=== PATIENT | female | born 1955 | race Caucasian/White ===

== ENCOUNTER 2016-11-16 14:10 | Emergency (ER) | payer BC ==
[2016-11-16 14:14] VITALS: BP 122/54; PULSE 65; TEMP 97.5; BMI 29.2
--- NOTE | 2016-11-16 15:47 | PDOC ---
History of Present Illness - General History Source: Patient Exam Limitations: No Limitations <Erika Mcdowell - Last Filed: 11/16/16 18:54> <Anne Mccauley - Last Filed: 11/16/16 20:36> - General History Source: Patient Exam Limitations: No Limitations - History of Present Illness Initial Comments: 11/16/16 18:55 The patient is a 60 year old female with a significant past medical history of vertigo and herniated discs, who presents to the ER with left leg burning and numbness for one week. Patient states she had onset of numbness in the bilateral lower extremities as she was walking down the stairs last friday (7 days go). She states the right leg numbness resolved but the left leg numbness persisted and is accompanied with leg tingling. Patient states she saw her orthopedic doctor in [facility] a few days ago and had a lumbar MRI done-- results not yet known. Patient reports the numbness and burning is going up the leg to the left abdomen and left chest/arm. She states she has intermittent sensations of itchiness in the hands and abdomen. pt dnies any focal weakness. Pt notes she has a history of radiculopathy before but these symptoms are new. Pt denies any headache, vision changes, neck pain, back pain, chest pain, palpitations, n/v. Denies nausea, vomiting, diarrhea Denies fever, chillsw, cough Denies back pain, dysuria, hematuria PCP: Dr. Perez Surgical Hx: Cholecystectomy, Surgery on Cervical Spine, Carpal Tunnel Surgery <Alfredo Ulrich - Last Filed: 11/20/16 09:18> - General Chief Complaint: Pain Stated Complaint: LFT LEG PAIN Time Seen by Provider: 11/16/16 15:00 Past History <Erika Mcdowell - Last Filed: 11/16/16 18:54> <Anne Mccauley - Last Filed: 11/16/16 20:36> - Past Medical History HTN: Yes Hypercholesterolemia: Yes Psychiatric Problems: Yes (depression) Other medical history: ARTHRITIS - Surgical History Cholecystectomy: Yes - Psycho/Social/Smoking Cessation Hx Anxiety: No Suicidal Ideation: No Smoking History: Never smoked Have you smoked in the past 12 months: No Hx Alcohol Use: No Drug/Substance Use Hx: No Substance Use Type: None <Alfredo Ulrich - Last Filed: 11/20/16 09:18> - Past Medical History Allergies/Adverse Reactions: Allergies Allergy/AdvReac Type Severity Reaction Status Date / Time No Known Allergies Allergy Verified 11/16/16 14:14 Home Medications: Ambulatory Orders Aspirin [ASA -] 81 mg PO DAILY 09/02/15 Atorvastatin Ca [Lipitor] 20 mg PO HS 09/02/15 Ibuprofen [Motrin -] 600 mg PO QID #20 tablet 09/02/15 Meclizine HCl [Antivert -] 12.5 mg PO TID PRN 09/02/15 Oxycodone HCl/Acetaminophen [Percocet 5-325 mg Tablet] 1 tab PO Q6H PRN #20 tablet MDD 4 09/02/15 Tamsulosin HCl [Flomax] 0.4 mg PO DAILY #7 capsule 09/02/15 Celecoxib [Celebrex -] 100 mg PO BID #30 capsule 11/16/16 Review of Systems - Review of Systems Able to Perform ROS?: Yes Comments:: 11/16/16 17:35 CONSTITUTIONAL: No reported: Fever, Chills, Diaphoresis, Generalized Weakness, Malaise, Loss of Appetite HEENT: No reported: Rhinorrhea, Nasal Congestion, Throat Pain, Throat Swelling, Difficulty Swallowing, Mouth Swelling, Ear Pain, Eye Pain, Visual Changes CARDIOVASCULAR: No reported: Chest Pain, Syncope, Palpitations, Irregular Heart Rate, Lightheadedness, Peripheral Edema RESPIRATORY: No reported: Cough, Shortness of Breath, SOB with Exertion, Orthopnea, Wheezing , Stridor, Hemoptysis GASTROINTESTINAL: No reported: Abdominal pain, Abdominal Distension, Nausea, Vomiting, Diarrhea, Constipation, Melena, Hematochezia GENITOURINARY: No reported: Dysuria, Frequency, Urgency, Hesitancy, Flank Pain, Genital Pain MUSCULOSKELETAL: Reported: (+) Left leg numbness, paresthesia, and burning No reported: Myalgia, Arthralgia, Joint Swelling, Back pain, Neck Pain SKIN: Reported: (+) Itchiness in the hands and abdomen No reported: Rash, Pallor HEMEATOLOGIC/IMMUNOLOGIC: No reported: Easy Bleeding, Easy Bruising, Lymphadenopathy, Frequent infections ENDOCRINE: No reported: Unexplained Weight Gain, Unexplained Weight Loss, Heat Intolerance , Cold Intolerance NEUROLOGIC: No reported: Headache, Focal Weakness, Paresthesias, Vertigo, Lightheadedness, Unsteady Gait, Seizure, Mental Status Changes, Incontinence PSYCHIATRIC: No reported: Anxiety, Depression <Alfredo Ulrich - Last Filed: 11/20/16 09:18> *Physical Exam - Vital Signs Last Vital Signs Temp Pulse Resp BP Pulse Ox 97.5 F L 65 20 122/54 98 11/16/16 14:11 11/16/16 14:11 11/16/16 14:11 11/16/16 14:11 11/16/16 14:11 <UtsErika - Last Filed: 11/16/16 18:54> - Vital Signs Last Vital Signs Temp Pulse Resp BP Pulse Ox 97.5 F L 65 20 122/54 98 11/16/16 14:11 11/16/16 14:11 11/16/16 14:11 11/16/16 14:11 11/16/16 14:11 <Anne Mccauley - Last Filed: 11/16/16 20:36> - Vital Signs Last Vital Signs Temp Pulse Resp BP Pulse Ox 97.5 F L 65 20 122/54 98 11/16/16 14:11 11/16/16 14:11 11/16/16 14:11 11/16/16 14:11 11/16/16 14:11 - Physical Exam Comments: 11/16/16 17:35 GENERAL: The patient is awake, alert, and fully oriented, Nontoxic - in no acute distress. HEAD: Normocephalic, atraumatic. EYES: extraocular movements intact, sclera anicteric, conjunctiva clear. ENT: Normal voice, Moist mucous membranes. NECK: Normal range of motion, supple LUNGS: Breath sounds equal, clear to auscultation bilaterally. No wheezes, no rhonchi, no rales. HEART: Regular rate and rhythm, normal S1 and S2 without murmur, rub or gallop. ABDOMEN: Soft, nontender, normoactive bowel sounds. No guarding, no rebound. . No CVA tenderness EXTREMITIES: Normal range of motion, no edema. No clubbing or cyanosis. No cords, erythema, or tenderness. NEUROLOGICAL: No facial assymetry, Normal speech, no drift in upper/lower extremities, mild weakness in LUE 5-/5, and LLE 5/5, normal otherwise, deminshed babinsky reflex in LLE. decreased sensation in the LLE, L body, LUE. normal sensation in face. PSYCH: Normal mood, normal affect. SKIN: Warm, Dry, normal turgor <MojganAlfredo - Last Filed: 11/20/16 09:18> Heart Score/ECG Review - ECG Impressions Comment:: 11/16/16 18:49 Twelve-lead EKG was performed and reviewed by me. There is normal sinus rhythm with a rate of 51 right bundle branch block twi in inferior leads and anterior leads <Mojgan,Alfredo - Last Filed: 11/20/16 09:18> ED Treatment Course - LABORATORY CBC & Chemistry Diagram: 11/16/16 16:10 11/16/16 16:10 - ADDITIONAL ORDERS Additional order review: Laboratory Results 11/16/16 11/16/16 11/16/16 16:10 16:10 16:07 INR 0.92 Sodium 142 Potassium 4.0 Chloride 105 Carbon Dioxide 29 D Anion Gap 8 BUN 23 H D Creatinine 0.6 Creat Clearance w eGFR > 60 Random Glucose 103 Calcium 9.1 Magnesium 2.2 Total Bilirubin 0.3 AST 15 D ALT 28 D Alkaline Phosphatase 68 Total Protein 6.7 Albumin 3.5 11/16/16 16:10 RBC 4.44 MCV 88.5 MCHC 32.7 RDW 14.0 MPV 10.2 Neutrophils % 75.7 Lymphocytes % 18.0 Monocytes % 5.8 Eosinophils % 0.2 Basophils % 0.3 <Uts,Erika - Last Filed: 11/16/16 18:54> - LABORATORY CBC & Chemistry Diagram: 11/16/16 16:10 11/16/16 16:10 - ADDITIONAL ORDERS Additional order review: Laboratory Results 11/16/16 11/16/16 11/16/16 18:15 16:10 16:10 INR 0.92 Sodium 142 Potassium 4.0 Chloride 105 Carbon Dioxide 29 D Anion Gap 8 BUN 23 H D Creatinine 0.6 Creat Clearance w eGFR > 60 Random Glucose 103 Calcium 9.1 Magnesium Total Bilirubin 0.3 AST 15 D ALT 28 D Alkaline Phosphatase 68 Total Protein 6.7 Albumin 3.5 Urine Color Colorless Urine Appearance Clear Urine pH 6.0 Urine Protein Negative Urine Glucose (UA) Negative Urine Ketones Negative Urine Blood 1+ H Urine Nitrite Negative Urine Bilirubin Negative Urine Urobilinogen Negative Ur Leukocyte Esterase Trace H Urine RBC 1 Urine WBC 2 Ur Epithelial Cells Rare 11/16/16 16:07 INR Sodium Potassium Chloride Carbon Dioxide Anion Gap BUN Creatinine Creat Clearance w eGFR Random Glucose Calcium Magnesium 2.2 Total Bilirubin AST ALT Alkaline Phosphatase Total Protein Albumin Urine Color Urine Appearance Urine pH Urine Protein Urine Glucose (UA) Urine Ketones Urine Blood Urine Nitrite Urine Bilirubin Urine Urobilinogen Ur Leukocyte Esterase Urine RBC Urine WBC Ur Epithelial Cells 11/16/16 16:10 RBC 4.44 MCV 88.5 MCHC 32.7 RDW 14.0 MPV 10.2 Neutrophils % 75.7 Lymphocytes % 18.0 Monocytes % 5.8 Eosinophils % 0.2 Basophils % 0.3 <Anne Mccauley - Last Filed: 11/16/16 20:36> - LABORATORY CBC & Chemistry Diagram: 11/16/16 16:10 11/16/16 16:10 - RADIOLOGY Radiology Studies Ordered: Category Date Time Status CERVICAL SPINE CT W/O CONTR [CT] Stat CT Scan 11/16/16 15:[address] WITHOUT CONTRAST [CT] Stat CT Scan 11/16/16 15:[address] W/O CONTRAST [CT] Stat CT Scan 11/16/16 15:30 Ordered <Alfredo Ulrich - Last Filed: 11/20/16 09:18> Medical Decision Making - Medical Decision Making 11/16/16 19:41 I received pt on signout; CT scans pending: Head CT: Patient Name: Nguyen Pate THIS IS A PRELIMINARY REPORT FROM [facility] CARE MANAGER EXAM: CT head without contrast IMAGES: [id number] DATE OF SERVICE: 16:15:36.0 HISTORY:Left arm and leg tingling. COMPARISON: None. FINDINGS: 1. There is no evidence of an acute intracranial process, intracranial hemorrhage or mass effect. 2. The ventricles are normal size. 3. The visualized portions of the orbits, paranasal and mastoid sinuses are unremarkable. THIS DOCUMENT HAS BEEN ELECTRONICALLY SIGNED 11/16/16 19:[address]:Patient Name: Nguyen Pate THIS IS A PRELIMINARY REPORT FROM [facility]AGING [facility]ICAL CARE MANAGER EXAM: CT cervical spine without contrast IMAGES: [id number] DATE OF SERVICE: 2016-11-16 16:15:36.0 HISTORY:Left arm and leg tingling. COMPARISON: None. FINDINGS: 1. There is straightening of the normal lordotic curve of the cervical spine. There is previous anterior discectomy and fusion from C4-C6. The vertebral heights are maintained. There is loss of height of the C6-C7 disc. 2. There appears to be canal stenosis at the C6-C7 level with a right paracentral disc protrusion/herniation. Visualization of detail of the contents of the cervical canal is significantly limited by artifact. MRI of the cervical spine may be helpful for further evaluation. 3. There is no evidence of fracture, subluxation or hardware failure of the cervical spine. 4. The paraspinous soft tissues are unremarkable. THIS DOCUMENT HAS BEEN ELECTRONICALLY SIGNED 11/16/16 19:[address]: Patient Name: Nguyen Pate THIS IS A PRELIMINARY REPORT FROM [facility]AGING MEDICAL CARE MANAGER EXAM: CT lumbar spine without contrast IMAGES: [id number] DATE OF SERVICE: 2016-11-16 16:15:36.0 HISTORY:Left arm and leg tingling. COMPARISON: None. FINDINGS: 1. There is mild grade 1 anterolisthesis of L2 on L3. The vertebral heights are maintained. There is loss of height of the disc spaces in the lumbar spine from L2-L3 through L5-S1. There is multiple level degenerative facet change. There appears to be multiple level canal stenosis secondary to spondylotic change. MRI lumbar spine may be helpful for further evaluation. 2. Left renal cyst that is incompletely imaged. There appear to be small stones in the right renal pelvis. 3. Evidence of previous cholecystectomy. THIS DOCUMENT HAS BEEN ELECTRONICALLY SIGNED 11/16/16 20:[address] Perez who agrees that pt can follow with him on an outpatient basis. I will provide her with copies of her CT scan results. <Anne Mccauley - Last Filed: 11/16/16 20:36> - Medical Decision Making 11/16/16 15:33 60y F hx of vertigo, herniated discs, presnts to the ED for eavluation of L sided tingling. Pt states that she had L sided leg burning/tingling for 1 week, went to her ortho who ordered an MRI, but she doesnt know the results. She came today due to worsening symptoms and in the ED noticed some numbness to her LUE/ body as well. exam noted for mild weakness and sensory deficits of LE and LUE unclear what level pts herniated discs are, pt with no cts present here but differential includes cervical + lumbar radiculopathy (although pt has no back/neck pain) vs cva will ck ct neck/lumbar, ct head will reassess A portion of this note was documented by scribe services under my direction. I have reviewed the details of the note, within reason, and agree with the documentation with the following case summary and management plan written by me 11/16/16 19:00 pt signed out to dr. bridgette de paz with results and disposition the pt <Alfredo Ulrich - Last Filed: 11/20/16 09:18> *DC/Admit/Observation/Transfer - Attestations Scribe Attestion: 11/16/16 17:36 Documentation prepared by Erika Mcdowell, acting as medical laboratory technicians for Alfredo Ulrich MD. <Erika Mcdowell - Last Filed: 11/16/16 18:54> <Anne Mccauley - Last Filed: 11/16/16 20:36> <Alfredo Ulrich - Last Filed: 11/20/16 09:18> Diagnosis at time of Disposition: Paresthesia and pain of left extremity, Paresthesia of left leg, Spinal stenosis of lumbar region, Spinal stenosis in cervical region - Discharge Dispostion Disposition: HOME Condition at time of disposition: Stable - Prescriptions Prescriptions: Celecoxib [Celebrex -] 100 mg PO BID #30 capsule - Referrals Referrals: STAFF,NOT ON [Primary Care Provider] - NIH Stroke Scale - Last Known Well Date/Time & Onset Date Last Known Well: 11/10/16 Time Last Known Well: 16:00 - Initial Evaluation Level of consciousness: Alert Ask patient the month and their age: Answers both correctly Ask patient to open & close eyes; make fist and let go: Obeys both correctly Best gaze (horizontal eye movement): Normal Visual field testing: No visual field loss Facial paresis (Show teeth/raise eyebrows/close eyes tight): Normal symmetrical movement Motor Function: Left Arm: Normal Motor Function: Right Arm: Normal (extends arm 90 (or 45) degrees for 10 seconds without drift Motor Function: Left Leg: Normal (extends leg 30 degrees for 5 seconds without drift) Motor Function: Right Leg: Normal (extends leg 30 degrees for 5 seconds without drift) Limb Ataxia: No ataxia Sensory(Use pinprick test arms,legs,trunk,face/side to side): Mild to moderate decrease in sensation Best language (Describe picture, name items, read sentences): No Aphasia Dysarthria (read several words): Normal articulation Extinction and Inattention: No abnormality - Total Score NIH Stroke Scale Score: 1 <Alfredo Ulrich - Last Filed: 11/20/16 09:18> tPA Exclusion Checklist 0-3hr - Time Elapsed Date last known well: 11/09/16 Time last known well: 17:00 Elaspsed time: 10 Day(s) and 16 Hour(s) and 18 Minutes - Thrombolytic Therapy Candidate Is the patient eligible for Thrombolytic Therapy?: No - Ineligibility reason(s) Reasons No tPA given: Outside of window - delayed arrival <Alfredo Ulrich - Last Filed: 11/20/16 09:18>
[2016-11-16 16:14] LABS: BASOPHIL 0.3 % (0-2.0); EOSINOPHIL 0.2 % (0-4.5); MCHC 32.7 g/dl (32.0-36.0); MEAN CELL VOLUME 88.5 fl (80-96); MEAN PLT VOLUME 10.2 fl (7.5-11.1); NEUTROPHILS 75.7 % (42.8-82.8); PLATELET COUNT 191 K/MM3 (134-434)
[2016-11-16 16:34] LABS: INR 0.92 (0.82-1.09); PROTHROMBIN TIME (PATIENT) 10.1 SEC (9.98-11.88)
[2016-11-16 16:48] LABS: ALBUMIN 3.5 g/dl (3.4-5.0); ALK PHOS 68 U/L (45-117); ANION GAP 8 (8-16); BILIRUBIN,TOTAL 0.3 mg/dL (0.2-1.0); CALCIUM 9.1 mg/dL (8.5-10.1); CO2 29 mmol/L (21-32); CREATININE 0.6 mg/dL (0.55-1.02); GLUCOSE,RANDOM 103 mg/dL (74-106); SGOT/AST 15 U/L (15-37); SGPT/ALT 28 U/L (12-78); TOT PROT 6.7 g/dl (6.4-8.2)
[2016-11-16 18:55] LABS: URINE APPEARANCE CLEAR; URINE BILIRUBIN NEGATIVE (NEGATIVE); URINE COLOR COLORLESS; URINE GLUCOSE (UA) NEGATIVE (NEGATIVE); URINE KETONE NEGATIVE (NEGATIVE); URINE NITRITE NEGATIVE (NEGATIVE); URINE PROTEIN NEGATIVE (NEGATIVE); URINE UROBILINOGEN NEGATIVE E.U./dl (0.2-1.0)
[2016-11-16 19:01] LABS: URINE BLOOD 1+ (NEGATIVE); URINE LEUK ESTERASE TRACE (NEGATIVE)
[2016-11-16 19:02] LABS: URINE RBC 1 /hpf (0-3); URINE WBC 2 /hpf (3-5)
--- NOTE | 2016-11-17 10:15 | EKG ---
Test Reason : Blood Pressure : / mmHG Vent. Rate : 051 BPM Atrial Rate : 051 BPM P-R Int : 136 ms QRS Dur : 128 ms QT Int : 472 ms P-R-T Axes : -04 000 -12 degrees QTc Int : 435 ms SINUS BRADYCARDIA RIGHT BUNDLE BRANCH BLOCK NONSPECIFIC ST ABNORMALITY ABNORMAL ECG Confirmed by MALINA VU MD ([id number]) on 11/17/2016 10:15:19 AM Referred By: Confirmed By:MALINA VU MD
== END 2016-11-16 20:16 | disposition home or self-care (01) ==
LOC: JER 14:10
DX: R20.2 Paresthesia of skin (principal); M48.02 Spinal stenosis, cervical region; M48.06 Spinal stenosis, lumbar region; I10 Essential (primary) hypertension; E78.00 Pure hypercholesterolemia, unspecified; F32.9 Major depressive disorder, single episode, unspecified; M12.9 Arthropathy, unspecified
CPT/HCPCS: 36415; 70450-TC; 72125-TC; 72131-TC; 80053; 81003; 81015; 83735; 85025; 85610; 93005; 93010; 99282-25

== ENCOUNTER 2017-01-01 05:14 | Day surgery (SDC) | payer BC ==
[2016-12-31 15:03] VITALS: BMI 29.2
[2017-01-01 07:32] VITALS: TEMP 97.2
[2017-01-01] MEDS ORDERED: PROPOFOL 20 ML ONE (09:05)
[2017-01-01] MEDS ORDERED: BUPIVACAINE HCL/PF 0.25% (2.5MG/ML) 10 ML VIAL IJ ONE (09:10)
[2017-01-01] MEDS ORDERED: methylPREDNISolone ACET (DEPO) 80 MG/1 ML VIAL IJ ONE (09:11)
[2017-01-01] MEDS ORDERED: LIDOCAINE HCL 1% PRESERVATIVE FREE - 30ML VIAL IJ ONE (09:11)
--- NOTE | 2017-01-01 11:04 | OP ---
DATE OF OPERATION: 01/01/2017 PREOPERATIVE DIAGNOSIS: Lumbar spinal stenosis L3-L4 with lower back pain and lumbar radiculopathy. POSTOPERATIVE DIAGNOSIS: Lumbar spinal stenosis L3-L4 with lower back pain and lumbar radiculopathy. ATTENDING SURGEON: Abbe Carpio MD PROCEDURES: 1. Left L3-L4 epidural injection. 2. Trial operative fluoroscopy. ANESTHESIA: Local with IV sedation. ANESTHESIOLOGIST: Lily Alcantara MD INDICATIONS: The patient is a 61-year-old female with back pain and lumbar radiculopathy. Because of intractable symptoms and failure with conservative treatment, she is here for the first epidural steroid injection. The risks of procedure include, but are not limited to, bleeding, infection, spinal headache, and neurological injury. The patient understands the indication for the procedure. Risks, benefits, and alternatives for treatment of her lumbar condition and wished to proceed. No guaranteed is given for favorable outcome. DESCRIPTION OF PROCEDURE: After the patient was taken to the operating room, she was placed in prone position with a pillow under her hips. Lumbar area was cleaned with alcohol and prepped with Betadine. A skin wheal was raised using 5 mL of 1% Xylocaine. A 22-gauge spinal needle was inserted under AP fluoroscopic guidance from a left-sided approach to L3-L4. Loss of resistance technique was utilized, and there was no CSF or blood backflow. The needle bed was turned cephalad and laterally. Then 80 mg Depo-Medrol with 1 mL of 0.25% Marcaine was injected. The needle was withdrawn. Sterile bandage was applied. The patient tolerated the procedure well and was turned to supine position. Moving bilateral lower extremities well. She did not complain of headache. ABBE CARPIO M.D. [id number]
[2017-01-01 11:39] VITALS: BP 122/70; PULSE 68
== END 2017-01-01 10:35 | disposition home or self-care (01) ==
LOC: JASU-SURG 05:14
PROVIDERS: ATTEND Neurological Surgery
PROC: 3E0S33Z Introduction of Anti-inflammatory into Epidural Space, Percutaneous Approach (ICD-10-PCS; 2017-01-01)
PROC: B01BYZZ Fluoroscopy of Spinal Cord using Other Contrast (ICD-10-PCS; 2017-01-01)
PROC: 3E0S3BZ Introduction of Anesthetic Agent into Epidural Space, Percutaneous Approach (ICD-10-PCS; principal; 2017-01-01 08:30)
DX: M48.06 Spinal stenosis, lumbar region (principal); M54.16 Radiculopathy, lumbar region
CPT/HCPCS: 76000-TC

== ENCOUNTER 2017-04-21 17:29 | Emergency (ER) | payer BC ==
[2017-04-21 17:40] VITALS: BP 121/76; PULSE 75; TEMP 97.9; BMI 29.2
[2017-04-21] MEDS ORDERED: diazePAM 5 MG TABLET PO ONE (18:10)
[2017-04-21] MEDS ORDERED: diazePAM 5 MG TABLET ONE (18:23)
[2017-04-21 18:30] LABS: URINE APPEARANCE Clear; URINE BILIRUBIN Negative (NEGATIVE); URINE BLOOD Negative (NEGATIVE); URINE GLUCOSE (UA) Negative (NEGATIVE); URINE KETONE Negative (NEGATIVE); URINE NITRITE Negative (NEGATIVE); URINE PROTEIN Negative (NEGATIVE); URINE UROBILINOGEN 0.2 (0.2-1.0)
--- NOTE | 2017-04-21 18:32 | PDOC ---
History of Present Illness - General History Source: Patient, Family, Old Records Exam Limitations: No Limitations <Eduardo Velasco - Last Filed: 04/21/17 18:53> - General History Source: Patient, Family, Old Records Exam Limitations: No Limitations - History of Present Illness Initial Comments: 04/21/17 18:57 The patient is a 61 year old female, with a significant past medical history of ridiculopathy and cervical/lumbar disk herniation who presents to the emergency department with neuropathic pain for several months. The patient reports bilateral lower extremity numbness, burning, and tingling that is chronic in nature, but has worsened at the left lower extremity. Patient reports numbness and tingling in bilateral upper extremities with her right side worse than left. Patient reports recent lumbar surgery and multiple jose placements in December 2016 with mild improvement of symptoms. Patient reports her symptoms have worsened since her surgery. She states her symptoms are worsened when lying flat and alleviated when walking. Patient reports discussing her symptoms with her surgeon 2 days ago, who increased her dose of Gabapentin from 300 to 600 mg BID with minimal relief of symptoms. Patient reports her neuropathic symptoms have affected her ability to sleep. She reports new onset of dysuria and left lower quadrant pain for 2 days. She denies any associated hematuria, frequency, or urgency. She denies any nausea, vomiting, diarrhea, or constipation. She denies any fever or chills. She denies any recent travel or sick contacts. Allergies: NKDA Past Surgical History: Cholecystectomy, Surgery on Cervical Spine, Right carpal tunnel Social History: Non smoker. No ETOH or recreational drug use. PCP: Dr. Fairchild <Nanci Macias - Last Filed: 04/21/17 20:57> - General Chief Complaint: Pain, Acute Stated Complaint: LEFT SIDE BURNING/PAIN Time Seen by Provider: 04/21/17 17:36 Past History - Past Medical History COPD: No HTN: Yes Hypercholesterolemia: Yes Liver Disease: No Psychiatric Problems: Yes (depression) - Surgical History Cholecystectomy: Yes Neurologic Surgery: (NECK) Orthopedic Surgery: (LEFT SHOULDER ,CTR STACY) - Suicide/Smoking/Psychosocial Hx Smoking History: Never smoked Have you smoked in the past 12 months: No Information on smoking cessation initiated: No Hx Alcohol Use: No Drug/Substance Use Hx: No Substance Use Type: None <Eduardo Velasco - Last Filed: 04/21/17 18:53> <Nanci Macias - Last Filed: 04/21/17 20:57> - Past Medical History Allergies/Adverse Reactions: Allergies Allergy/AdvReac Type Severity Reaction Status Date / Time No Known Allergies Allergy Verified 04/21/17 17:31 Home Medications: Ambulatory Orders Atorvastatin Ca [Lipitor] 10 mg PO HS 09/02/15 Fluoxetine HCl [Prozac] 20 mg PO DAILY 04/21/17 Gabapentin [Neurontin] 600 mg PO BID 04/21/17 Review of Systems - Review of Systems Able to Perform ROS?: Yes Comments:: 04/21/17 18:57 GENERAL/CONSTITUTIONAL: No fever or chills. No weakness. HEAD, EYES, EARS, NOSE AND THROAT: No change in vision. No ear pain or discharge. No sore throat. CARDIOVASCULAR: No chest pain or shortness of breath. RESPIRATORY: No cough, wheezing, or hemoptysis. GASTROINTESTINAL: Yes abdominal pain. No nausea, vomiting, diarrhea or constipation. GENITOURINARY: Yes dysuria. No frequency, or change in urination. MUSCULOSKELETAL: No joint or muscle swelling or pain. No neck pain. SKIN: No rash NEUROLOGIC: Yes bilateral lower extremity numbness, tingling, and burning, with left worse than right. Yes bilateral upper extremity numbness and tingling, right worse than left. Yes neuropathic pain. No headache, vertigo, loss of consciousness, or change in strength. ENDOCRINE: No increased thirst. No abnormal weight change. HEMATOLOGIC/LYMPHATIC: No anemia, easy bleeding, or history of blood clots. ALLERGIC/IMMUNOLOGIC: No hives or skin allergy. <Nanci Macias - Last Filed: 04/21/17 20:57> *Physical Exam - Vital Signs Last Vital Signs Temp Pulse Resp BP Pulse Ox 97.9 F 75 16 121/76 100 04/21/17 17:30 04/21/17 17:30 04/21/17 17:30 04/21/17 17:30 04/21/17 17:30 <Eduardo Velasco - Last Filed: 04/21/17 18:53> - Vital Signs Last Vital Signs Temp Pulse Resp BP Pulse Ox 97.9 F 75 16 121/76 100 04/21/17 17:30 04/21/17 17:30 04/21/17 17:30 04/21/17 17:30 04/21/17 17:30 - Physical Exam Comments: 04/21/17 18:58 GENERAL: Awake, alert, and fully oriented, in no acute distress HEAD: No signs of trauma EYES: PERRLA, EOMI, sclera anicteric, conjunctiva clear ENT: Auricles normal inspection, hearing grossly normal, nares patent, oropharynx clear without exudates. Moist mucosa NECK: Normal ROM, supple, no lymphadenopathy, JVD, or masses LUNGS: Breath sounds equal, clear to auscultation bilaterally. No wheezes, and no crackles HEART: Regular rate and rhythm, normal S1 and S2, no murmurs, rubs or gallops ABDOMEN: Tenderness to palpation to the left lower quadrant. Soft, normoactive bowel sounds. No guarding, no rebound. No masses EXTREMITIES: Normal range of motion to the upper and lower extremities, but no edema. No clubbing or cyanosis. No cords, erythema, or tenderness. VASCULAR: DP/PT pulses 2+ and symmetric NEUROLOGICAL: Decreased sensation to the right upper quadrant compared to left. Paresthesias appreciated in the bilateral lower extremities, left worse than right. Cranial nerves II through XII grossly intact. Normal speech. SKIN: Warm, Dry, normal turgor, no rashes or lesions noted. <Nanci Macias - Last Filed: 04/21/17 20:57> ED Treatment Course - LABORATORY CBC & Chemistry Diagram: 04/21/17 18:22 04/21/17 18:22 <Eduardo Velasco - Last Filed: 04/21/17 18:53> - LABORATORY CBC & Chemistry Diagram: 04/21/17 18:22 04/21/17 18:22 - ADDITIONAL ORDERS Additional order review: Laboratory Results 04/21/17 18:22 Urine Color Yellow Urine Appearance Clear Urine pH 7.0 Ur Specific [place] 1.020 Urine Protein Negative Urine Glucose (UA) Negative Urine Ketones Negative Urine Blood Negative Urine Nitrite Negative Urine Bilirubin Negative Urine Urobilinogen 0.2 Ur Leukocyte Esterase Trace H 04/21/17 18:22 RBC 3.90 MCV 86.9 MCHC 32.2 RDW 13.0 MPV 11.5 H Neutrophils % 59.6 Lymphocytes % 29.8 Monocytes % 7.6 Eosinophils % 2.4 Basophils % 0.6 - RADIOLOGY Radiograph Interpretation: 04/21/17 20:56 EXAM: CT Abdomen and Pelvis INTERPRETED BY: Dr. Martinez REVIEWED BY: Dr. Perez IMPRESSION: No evidence of pneumoperitoneum, abscess, free intraperitoneal fluid or bowel obstruction. Mild left-sided colonic diverticulosis is noted without evidence of acute diverticulitis. In comparison to a prior CT study of there has been interval passage/removal of a small proximal left ureteral calculus with associated resolution of mild hydronephrosis. Note is made also made of interval multilevel bilateral lower lumbar interpedicular screw fixation. The remainder of the study demonstrates no definite interval change. No definite evidence of current urolithiasis. Small urinary tract calculi may not be demonstrable on contrast-enhanced CT. Status post cholecystectomy. Mild intrahepatic and extrahepatic biliary tract dilatation. Common bile duct diameter 1 cm. No gross intraductal calculus is seen. Clinical/ laboratory correlation is suggested. Hepatic cysts. 5.7 cm left renal cortical cyst. The spleen, pancreas, and adrenal glands demonstrate no discrete abnormality. There is no aortic aneurysm. No definite lymphadenopathy is noted. There is no discrete pelvic pathology. No definite CT signs of acute pathology are identified. Mild sigmoid diverticulosis without evidence of acute diverticulitis. In comparison to a prior CT study of 09/02/2015 there has been interval passage/removal of a small proximal left ureteral calculus with resolution of mild hydronephrosis. No obvious current urolithiasis is seen. Status post cholecystectomy as the prior study. Mild stable biliary tract dilatation. - Medications Given in the ED: ED Medications Discontinued Medications Generic Name Dose Route Start Last Admin Trade Name Freq PRN Reason Stop Dose Admin Diazepam 5 mg 04/21/17 18:10 04/21/17 18:24 Valium - PO 04/21/17 18:11 5 mg ONCE ONE Administration <Macias,Giomilsy - Last Filed: 04/21/17 20:57> Medical Decision Making - Medical Decision Making 04/21/17 18:21 A portion of this note was documented by scribe services under my direction. I have reviewed the details of the note, within reason, and agree with the documentation with the following case summary and management plan written by me. Patient treated in the ED. Nursing notes are reviewed and incorporated into the medical decision-making. Vital signs reviewed. Peripheral IV access obtained by the nurse, laboratory studies are drawn and sent, reviewed and interpreted by myself. Vital Signs Temp Pulse Resp BP Pulse Ox 97.9 F 75 16 121/76 100 04/21/17 17:30 04/21/17 17:30 04/21/17 17:30 04/21/17 17:30 04/21/17 17:30 61-year-old female with past medical history of radiculopathy and cervical and lumbar disc herniations presents to the emergency department for neuropathic pain. The patient reports for chronic time of having bilateral numbness and burning and tingling sensation that has particular worsened in the left lower extremity. She has known numbness and tingling in her upper extremities worse on the right. She has undergone lumbar surgery and jose placement in December 2017 with some improvement in symptoms. However, patient is noted that these neuropathic symptoms have been progressively worsened. 2 days ago, she had discussed this with her doctor who had increased her gabapentin to 600 mg twice a day. Unsure if she noticed and affect. However it is now affecting her ability to sleep so the patient came into the ED. Recently, patient has been endorsing dysuria but denies fevers or chills. Patient has been complaining of left lower quadrant Pain for 2 days, which is new for her. This may potentially be neuropathic pain exacerbation. However, she may be having an exacerbation the setting of urinary tract infection versus diverticulitis versus colitis. We'll attempt to control her symptoms and draw blood work and urinalysis. We'll also obtain a CAT scan the abdomen pelvis and reassess. 04/21/17 18:53 Case signed out to Dr. Perez for further management and disposition. <Eduardo Velasco - Last Filed: 04/21/17 18:53> *DC/Admit/Observation/Transfer <Eduardo Velasco - Last Filed: 04/21/17 18:53> - Attestations Scribe Attestion: 04/21/17 18:58 Documentation prepared by Nanci Macias, acting as medical case manager for Eduardo Velasco MD. <Nanci Macias - Last Filed: 04/21/17 20:57> - Discharge Dispostion Condition at time of disposition: Stable
[2017-04-21 18:36] LABS: URINE COLOR YELLOW; URINE LEUK ESTERASE TRACE (NEGATIVE)
[2017-04-21 18:38] LABS: BASOPHIL 0.6 % (0-2.0); EOSINOPHIL 2.4 % (0-4.5); MCHC 32.2 g/dl (32.0-36.0); MEAN CELL VOLUME 86.9 fl (80-96); MEAN PLT VOLUME 11.5 fl (7.5-11.1); NEUTROPHILS 59.6 % (42.8-82.8); PLATELET COUNT 250 K/MM3 (134-434); WHITE BLOOD COUNT 5.9 K/mm3 (4.0-10.8)
[2017-04-21 19:09] LABS: ALBUMIN 3.7 g/dl (3.5-5.0); ALK PHOS 56 U/L (32-92); ANION GAP 6 (8-16); BILIRUBIN,TOTAL 0.7 mg/dl (0.2-1.0); CO2 25 mmol/L (22-28); CREATININE 0.7 mg/dl (0.6-1.3); GLUCOSE,RANDOM 97 mg/dl (74-106); MAGNESIUM 2.1 mg/dL (1.8-2.4); PHOSPHOROUS 4.1 mg/dl (2.5-4.6); SGOT/AST 25 U/L (10-42); SGPT/ALT 30 U/L (10-40); TOT PROT 6.2 g/dl (6.4-8.3)
[2017-04-21 20:37] LABS: URINE RBC 0-3 /hpf (0-3)
[2017-04-21 20:39] LABS: URINE BACTERIA FEW /hpf (NEGATIVE)
--- NOTE | 2017-04-21 20:39 | PDOC ---
*Physical Exam - Vital Signs Last Vital Signs Temp Pulse Resp BP Pulse Ox 97.9 F 75 16 121/76 100 04/21/17 17:30 04/21/17 17:30 04/21/17 17:30 04/21/17 17:30 04/21/17 17:30 ED Treatment Course - LABORATORY CBC & Chemistry Diagram: 04/21/17 18:22 04/21/17 18:22 - ADDITIONAL ORDERS Additional order review: Laboratory Results 04/21/17 04/21/17 18:22 18:22 Sodium 136 Potassium 4.4 Chloride 105 Carbon Dioxide 25 Anion Gap 6 L BUN 22 H Creatinine 0.7 Creat Clearance w eGFR > 60 Random Glucose 97 Calcium 9.0 Phosphorus 4.1 Magnesium 2.1 Total Bilirubin 0.7 AST 25 ALT 30 Alkaline Phosphatase 56 Total Protein 6.2 L Albumin 3.7 Urine Color Yellow Urine Appearance Clear Urine pH 7.0 Ur Specific [place] 1.020 Urine Protein Negative Urine Glucose (UA) Negative Urine Ketones Negative Urine Blood Negative Urine Nitrite Negative Urine Bilirubin Negative Urine Urobilinogen 0.2 Ur Leukocyte Esterase Trace H 04/21/17 18:22 RBC 3.90 MCV 86.9 MCHC 32.2 RDW 13.0 MPV 11.5 H Neutrophils % 59.6 Lymphocytes % 29.8 Monocytes % 7.6 Eosinophils % 2.4 Basophils % 0.6 - Medications Given in the ED: ED Medications Discontinued Medications Generic Name Dose Route Start Last Admin Trade Name Freq PRN Reason Stop Dose Admin Diazepam 5 mg 04/21/17 18:10 04/21/17 18:24 Valium - PO 04/21/17 18:11 5 mg ONCE ONE Administration Medical Decision Making - Medical Decision Making Care of this patient received from Dr. Velasco. Abdominal/pelvic CT interpreted by Dr. Martinez of radiology staff: Diverticulosis without evidence of diverticulitis present. Patient has no evidence of ureteral stones or hydronephrosis/hydroureter. No evidence of other acute process. Results discussed with the patient and her daughter. Because the patient has positive LE on urinalysis, possibility of urinary tract infection is present. Urine will be sent for culture and sensitivity and patient started on Macrobid 100 mg twice a day. Meanwhile, she should continue her gabapentin at current dose as prescribed by her neurosurgeon. She should follow-up with her neurosurgeon, in the next few days, especially if there is persistent severe pain. Because the area of left flank/left lower quadrant pain is in the general configuration of a dermatome, patient and her daughter advised to monitor skin in this area closely, in case rash consistent with zoster develops. If this occurs, she should follow-up with her general doctor or return to the ER for medication *DC/Admit/Observation/Transfer Diagnosis at time of Disposition: Left flank pain - Discharge Dispostion Disposition: HOME Condition at time of disposition: Stable - Prescriptions Prescriptions: Nitrofurantoin Monohyd/M-Cryst [Macrobid -] 100 mg PO BID #6 capsule - Referrals - Patient Instructions Printed Discharge Instructions: Neuropathic Pain Additional Instructions: Drink plenty of fluids Macrobid 10 mg twice a day for 3 days Continue all other medications Follow-up the your neurosurgeon in the next 1-2 days, especially if burning pain is persistent Return here or see your general doctor if any rash develops in the area of pain - Post Discharge Activity
== END 2017-04-21 22:25 | disposition home or self-care (01) ==
LOC: FER 17:29
DX: R10.32 Left lower quadrant pain (principal); I10 Essential (primary) hypertension; E78.00 Pure hypercholesterolemia, unspecified; F32.9 Major depressive disorder, single episode, unspecified; M50.20 Other cervical disc displacement, unspecified cervical region; M51.26 Other intervertebral disc displacement, lumbar region
CPT/HCPCS: 36415; 74177-TC; 80053; 81003; 81015; 83735; 84100; 85025; 87086; 99283-25